=== PATIENT | female | born 1990 | race Asian ===

== ENCOUNTER 2020-09-30 10:08 | Outpatient (REF) | payer OTHER, SELFPAY ==
[2020-09-30 11:10] LABS: MANUAL DIFF FLAG NO
[2020-09-30 11:22] LABS: Basophils Percent Auto 0.5 % (0-2); Eosinophils Absolute Auto 0.1 X10*3/uL (0.0-0.4); Eosinophils Percent Auto 1.5 % (0-4); Hematocrit 38.8 % (37-47); Hemoglobin 12.3 g/dl (12.0-16.0); Imm Gran Abs Auto 0.01 X10*3/uL (0.00-0.03); Imm Gran Pct Auto 0.2 % (0.0-0.4); Lymphocytes Absolute Auto 2.4 X10*3/uL (1.2-4.9); Lymphocytes Percent Auto 36.7 % (20-40); Mean Corpuscular HGB Conc 31.7 g/dl (31.0-35.0); Mean Corpuscular Hemoglobin 28.5 pg (27.0-33.0); Mean Corpuscular Volume 89.8 fL (80-98); Mean Platelet Volume 10.6 fL (9.4-12.3); Monocytes Absolute Auto 0.5 X10*3/uL (0.1-1.2); Monocytes Percent Auto 7.1 % (2-11); Neutrophils Absolute Auto 3.5 X10*3/uL (2.0-8.3); Platelet Count 285 X10*3/uL (160-400); Red Blood Count 4.32 X10*6/uL (4.20-5.50); Red Cell Distribution Width 11.9 % (11.0-16.0); White Blood Count 6.5 X10*3/uL (4.8-10.8)
[2020-09-30 12:04] LABS: Vitamin D 25-OH Total 11.1 ng/mL (>30)
[2020-09-30 12:06] LABS: Folate 11.8 ng/mL (> or = 4.0); Vitamin B12 < 146 pg/mL (200-900)
[2020-09-30 12:07] LABS: Alanine Aminotransferase 18 U/L (0-31); Albumin Level 4.1 g/dL (3.5-5.0); Alkaline Phosphatase 62 U/L (39-117); Anion Gap 14 (12-20); Aspartate Amino Transferase 13 U/L (5-31); Bilirubin Total 0.5 mg/dL (0.0-1.0); Blood Urea Nitrogen 13 mg/dL (9-16); Calcium 8.6 mg/dL (8.4-10.2); Carbon Dioxide 18 mmol/L (22-29); Chloride 111 mmol/L (96-108); Estimated Glomerular Filt Rate > 60; Glucose Fasting 107 mg/dL (60-99); Potassium 4.2 mmol/L (3.3-5.1); Sodium 139 mmol/L (135-145); Total Protein 7.5 g/dL (6.5-8.0)
[2020-09-30 12:46] LABS: Erythrocyte Sedimentation Rate 20 MM/HR (0-20)
== END 2020-09-30 10:09 | disposition home or self-care (01) ==
LOC: HO.HMGCLDS 10:08
PROVIDERS: PCP Family Medicine; Visit Provider Family Medicine
DX: Z00.00 Encounter for general adult medical examination without abnormal findings (principal); R53.83 Other fatigue; E53.8 Deficiency of other specified B group vitamins; E55.9 Vitamin D deficiency, unspecified
CPT/HCPCS: 36415; 80053; 82306; 82607; 82746; 84443; 85025; 85652

== ENCOUNTER 2020-11-22 18:10 | Outpatient (REF) | payer OTHER, SELFPAY | END 2020-11-22 18:11 | disposition home or self-care (01) | LOC: HO.LNP 18:10 | PROVIDERS: Visit Provider Family Medicine | DX: Z20.822 Contact with and (suspected) exposure to COVID-19 (principal); B34.9 Viral infection, unspecified | CPT/HCPCS: U0003; U0005 ==

== ENCOUNTER 2020-12-22 11:20 | Outpatient (REF) | payer OTHER, SELFPAY ==
[2020-12-22 14:26] LABS: Monotest Negative (Negative)
== END 2020-12-22 11:21 | disposition home or self-care (01) ==
LOC: HO.HMGCLDS 11:20
PROVIDERS: PCP Family Medicine; Visit Provider Family Medicine
DX: G89.29 Other chronic pain (principal); R51.9 Headache, unspecified; R53.83 Other fatigue
CPT/HCPCS: 36415; 86308

== ENCOUNTER 2022-08-14 13:59 | Outpatient (REF) | payer OTHER, SELFPAY ==
[2022-08-14 16:37] LABS: Hematocrit 38.3 % (37.0-47.0); Hemoglobin 12.3 g/dl (12.0-16.0); Mean Corpuscular HGB Conc 32.1 g/dl (31.0-35.0); Mean Corpuscular Hemoglobin 28.3 pg (27.0-33.0); Mean Platelet Volume 10.8 fL (9.4-12.3); Platelet Count 292 X10*3/uL (160-400); Red Blood Count 4.35 X10*6/uL (4.20-5.50); Red Cell Distribution Width 12.6 % (11.0-16.0); White Blood Count 8.7 X10*3/uL (4.8-10.8)
[2022-08-14 17:07] LABS: Alanine Aminotransferase 39 U/L (0-31); Alkaline Phosphatase 74 U/L (39-117); Anion Gap 12 (12-20); Aspartate Amino Transferase 26 U/L (5-31); Bilirubin Direct < 0.2 mg/dL (0.0-0.5); Bilirubin Total 0.4 mg/dL (0.0-1.0); Blood Urea Nitrogen 9 mg/dL (9-16); C Reactive Protein 1.18 mg/dL (< or = 0.50); Calcium 9.3 mg/dL (8.4-10.2); Carbon Dioxide 25 mmol/L (22-29); Chloride 104 mmol/L (96-108); Cholesterol 193 mg/dL; Estimated Glomerular Filt Rate > 60; Glucose Random 118 mg/dL (60-115); HDL Cholesterol 51 mg/dL; LDL Cholesterol Calculated 102 mg/dl; Potassium 3.9 mmol/L (3.3-5.1); Sodium 137 mmol/L (135-145); Total Protein 7.5 g/dL (6.5-8.0); Triglycerides 201 mg/dL
[2022-08-14 17:24] LABS: Thyroid Stimulating Hormone 2.09 uIU/mL (0.32-4.0)
== END 2022-08-14 14:00 | disposition home or self-care (01) ==
LOC: HO.HMGCLDS 13:59
PROVIDERS: PCP Family Medicine; Visit Provider Internal Medicine
DX: R53.83 Other fatigue (principal)
CPT/HCPCS: 36415; 80048; 80061; 80076; 84443; 85027; 86140

== ENCOUNTER 2022-08-18 11:40 | Outpatient (REF) | payer OTHER, SELFPAY ==
[2022-08-18 14:37] LABS: Influenza A PCR NEGATIVE (Negative); Influenza B PCR NEGATIVE (Negative); Resp Syncy Virus RNA Qual PCR NEGATIVE (Negative); SARS COV2 PCR INHOUSE NEGATIVE (Negative)
[2022-08-18 15:05] LABS: Folate 17.3 ng/mL (> or = 4.0); Vitamin B12 476 pg/mL (200-900)
[2022-08-21 16:23] LABS: CRP High Sensitivity >10.0 mg/L
== END 2022-08-18 11:41 | disposition home or self-care (01) ==
LOC: HO.WFDLDS 11:40
PROVIDERS: Visit Provider Nurse Practitioner Family
DX: R52 Pain, unspecified (principal); R53.83 Other fatigue; Z20.822 Contact with and (suspected) exposure to COVID-19
CPT/HCPCS: 0241U; 36415; 82607; 82746; 86141

== ENCOUNTER 2022-08-18 11:48 | Outpatient (REF) | payer OTHER, SELFPAY | END 2022-08-18 11:49 | disposition home or self-care (01) | LOC: HO.LAB 11:48 | PROVIDERS: Visit Provider Nurse Practitioner Family | DX: Z13.89 Encounter for screening for other disorder (principal) ==

== ENCOUNTER 2022-09-22 13:46 | Outpatient (REF) | payer OTHER, SELFPAY ==
[2022-09-22 16:47] LABS: Basophils Percent Auto 0.4 % (0-2); Eosinophils Absolute Auto 0.1 X10*3/uL (0.0-0.4); Eosinophils Percent Auto 1.5 % (0-4); Imm Gran Abs Auto 0.03 X10*3/uL (0.00-0.03); Imm Gran Pct Auto 0.4 % (0.0-0.4); Lymphocytes Absolute Auto 2.7 X10*3/uL (1.2-4.9); Lymphocytes Percent Auto 36.7 % (20-40); MANUAL DIFF FLAG NO; Mean Corpuscular HGB Conc 32.4 g/dl (31.0-35.0); Mean Corpuscular Hemoglobin 28.6 pg (27.0-33.0); Mean Corpuscular Volume 88.1 fL (80.0-98.0); Mean Platelet Volume 10.9 fL (9.4-12.3); Monocytes Absolute Auto 0.5 X10*3/uL (0.1-1.2); Monocytes Percent Auto 6.6 % (2-11); Neutrophils Percent Auto 54.4 % (45-73); Platelet Count 266 X10*3/uL (160-400); Red Cell Distribution Width 12.2 % (11.0-16.0); White Blood Count 7.3 X10*3/uL (4.8-10.8)
[2022-09-22 17:11] LABS: Alanine Aminotransferase 34 U/L (0-31); Albumin Level 3.8 g/dL (3.5-5.0); Alkaline Phosphatase 66 U/L (39-117); Anion Gap 13 (12-20); Aspartate Amino Transferase 20 U/L (5-31); Bilirubin Total 0.4 mg/dL (0.0-1.0); Blood Urea Nitrogen 10 mg/dL (9-16); Calcium 9.1 mg/dL (8.4-10.2); Carbon Dioxide 24 mmol/L (22-29); Chloride 105 mmol/L (96-108); Estimated Glomerular Filt Rate > 60; Glucose Random 100 mg/dL (60-115); Potassium 3.9 mmol/L (3.3-5.1); Sodium 138 mmol/L (135-145); Total Protein 7.2 g/dL (6.5-8.0)
[2022-09-22 17:14] LABS: Monotest Negative (Negative)
[2022-09-22 17:26] LABS: Erythrocyte Sedimentation Rate 29 MM/HR (0-20)
[2022-09-22 17:29] LABS: Vitamin D 25-OH Total 19.7 ng/mL (>30)
[2022-09-25 12:02] LABS: HBS Num1 165.21 mIU/mL (0-7.99); HBc Num1 0.12 S/CO (0.00-0.79); HBsAGNum1 0.31 S/CO (0.00-0.99); HIV AB/AG Nonreactive (Nonreactive); HIV Num 1 0.08 S/CO (0.00-0.99); Hepatitis B Core Antibody Nonreactive (Nonreactive); Hepatitis B Surface Antigen Negative (Negative); ~HepC Num1 0.13 S/CO (0.00-0.79); ~Hepatitis B Surface Antibody REACTIVE (Nonreactive); ~Hepatitis C Antibody Nonreactive (Nonreactive)
[2022-09-25 17:18] LABS: CRP High Sensitivity 8.3 mg/L
[2022-09-26 06:14] LABS: Lyme Blot 1.05 index
[2022-09-26 17:28] LABS: EBV DNA PCR Not Detected (Not Detected); EBV Source Whole Blood
[2022-09-29 14:13] LABS: 18 KD (IgG) Band NON-REACTIVE; 23 KD (IgG) Band NON-REACTIVE; 23 KD (IgM) Band NON-REACTIVE; 28 KD (IgG) Band NON-REACTIVE; 30 KD (IgG) Band NON-REACTIVE; 39 KD (IgM) Band NON-REACTIVE; 39KD (IgG) Band NON-REACTIVE; 41 KD (IgM) Band NON-REACTIVE; 41KD (IgG) Band NON-REACTIVE; 45 KD (IgG) Band NON-REACTIVE; 58 KD (IgG) Band NON-REACTIVE; 66 KD (IgG) Band NON-REACTIVE; 93 KD (IgG) Band NON-REACTIVE; Lyme Abs Screen EQUIVOCAL; Lyme IgG Blot Interp NEGATIVE (NEGATIVE); Lyme IgM Blot Interp NEGATIVE (NEGATIVE)
== END 2022-09-22 13:47 | disposition home or self-care (01) ==
LOC: HO.HMGCLDS 13:46
PROVIDERS: Visit Provider Family Medicine
DX: Z00.00 Encounter for general adult medical examination without abnormal findings (principal); Z11.4 Encounter for screening for human immunodeficiency virus [HIV]; Z11.3 Encounter for screening for infections with a predominantly sexual mode of transmission; R53.83 Other fatigue; E55.9 Vitamin D deficiency, unspecified
CPT/HCPCS: 36415; 80053; 82306; 85025; 85652; 86141; 86308; 86617; 86618; 86704; 86706; 86803; 87340; 87389; 87798

== ENCOUNTER 2023-08-03 15:10 | Outpatient (AMB) | payer OTHER, SELFPAY ==
--- NOTE | 2023-08-03 15:27 | A.OFFVIS_ITS ---
Intake Vital Signs 08/03/23 15:32 Height 5 ft 2 in Weight 182 lb 6 oz BMI 33.4 BP 108/70 Blood Pressure Location Rt brachial Position Sitting Respiration 16 Pulse 80 Pulse Source Pulse Oximeter Pulse Oximetry (%) 97 Oxygen Delivery Method Room Air Intake Visit Reasons: NPV- Migraine with aura/HYPERSOMNIA Intake Note: Pt presents for new pt evaluation for Migraines. 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 Patient reports she started having headaches a few years ago however the increased approximately 1.5 years ago due to increased stress related to going through a divorce and becoming a single parent. Since they have decreased but does still have headaches. She also reports that she started having increased sleep difficulties around the same time,. Headache questionnaire: Previous work-up? States she had a normal brain MRI. Typical headache characteristics: Prodrome symptoms? None Aura? Denies Location, quality, characteristics? Stabbing pain in the back of the head becoming holocranial Pain intensity? Moderate to severe Associated symptoms? Photophobia, phonophobia, difficulty concentrating, dizziness, photophobia, nausea, ear pain, activity intolerance Focal weakness, Parethesias, Autonomic s/s? Denies Postdrome? Fatigue Triggers? Skipping meals, not sleeping well, stress Any positional, valsalva, exertional, sexual activity triggers? Denies Menstrual triggers? Yes can be worse. Has regular menses. Not on any control. Time of day? No specific time of day Duration? 1-2 days if untreated. Frequency? 1-2 times per month How does headache impact your life? Tries not to miss work. Currently working part-time as an construction accountant. Previous headache burden prevented her from working full-time. Current acute medication use/interventions: Naproxen 2 tabs, helps Previous acute medication use: None other Current preventative medication use: None Previous preventative medication use: Topiramate 25 mg per day, unsure if it was helpful. Non-pharmacological interventions: Rest Patient also endorses weight gain, blurry vision, depression and suicidal ideation without plan, states rarely but at times will think about the loss of her marriage and this can make her have suicidal ideation. She does not currently have a therapist. Note she is currently remarried. Patient describes her sleep difficulties as snoring, difficulty maintaining sleep, ruminating thoughts at night, excessive daytime sleepiness especially when she has not slept well. She has never had a sleep study. Patient denies history of concussion, back or neck issues, respiratory difficulties, cardiac disease, syncope, seizure, history of clotting disorders, endocrine disorders. Family history of migraine or other headache disorder? Her mother [facility] Family History Mother No problems noted. Father No problems noted. Social History Housing: Apartment Alcohol intake: never Patient Tobacco Use Status: Never used Tobacco e-Cigarette/Vaping Use: Never Used Current occupational status: employed Cognitive needs: No Hearing needs: No Vision needs: No Review of Systems Const Details: See scanned ROS form Physical Exam Vital Signs: Last Vital Signs Pulse 80 08/03/23 15:32 Resp 16 08/03/23 15:32 BP 108/70 08/03/23 15:32 Pulse Ox 97 08/03/23 15:32 Oxygen Delivery Method Room Air 08/03/23 15:32 BMI result Body Mass Index 33.4 Const Orientation/consciousness: patient oriented x3 HEENT Other: No palpable scalp tenderness. Head: Yes normocephalic Resp Effort & Inspection: normal respiratory effort and able to speak in complete sentences Neuro General: patient oriented x3 Cranial nerves: Yes CN's II-XII intact bilaterally Cognition (Neuro): normal cognition Gait exam (Neuro): Normal gait present Motor exam (neuro): 5/5 motor strength present throughout Deep tendon reflexes (DTR's): Right triceps reflex intensity grade: 2+, Left triceps reflex intensity grade: 2+, Rt Biceps (C5, C6): 2+, Left biceps reflex intensity grade: 2+, Right brachioradialis reflex intensity grade: 2+, Left brachioradialis reflex intensity grade: 2+, Right patellar reflex intensity grade: 2+ and Left patellar reflex intensity grade: 2+ Coordination: [id number] test normal, tandem gait normal and Romberg test negative Pupils: Normal pupillary reactivity/response: bilateral Psych Appearance: grossly normal Mental Status: mental status grossly normal Speech and movement: Normal speech and movement present Affect: normal affect Attitude: cooperative Thought process: Normal thought process present Assessment & Plan Assessment & Plan (1) Excessive daytime sleepiness: Code(s): G47.19 - Other hypersomnia (2) Snoring: Code(s): R06.83 - Snoring (3) Sleep difficulties: Code(s): G47.9 - Sleep disorder, unspecified (4) Depression: Code(s): F32.9 - Major depressive disorder, single episode, unspecified (5) Adjustment disorder: Code(s): F43.20 - Adjustment disorder, unspecified (6) Migraine without aura: Code(s): G43.009 - Migraine without aura, not intractable, without status migrainosus Plan Pt advised to undergo home sleep study to assess for sleep apnea. Patient advised to establish care with a therapist to help her adjust her sleep issues and adjustment issues stemming from her divorce. For overall headache management: Discussed importance of good self-care, including but not limited to maintaining a healthy diet, adequate fluid intake, adequate sleep, and engaging in regular physical activity. For headache triggers: Track headaches, especially after any treatment regimen changes. Migraine [employer]Its[employer] is one of many headache tracking apps. For acute headache treatment: Discussed importance of taking acute medications at the first sign of headache, however stressed importance of avoiding acute medication overuse. May use naproxen 2 tabs as needed. Previous acute migraine medication trials: None Acute migraine medication contraindications: None Future considerations: Sumatriptan p.r.n. For headache prevention medication: Discussed that preventative medications should be taken routinely as prescribed for best effect, it may take several weeks for full effect to take effect. Start Riboflavin 400mg qam Start Magnesium 400mg qhs Previous migraine prevention medication trials: Topiramate- 25 mg q.h.s.- ineffective Migraine prevention medication contraindications: None at this time Pt to follow-up in 2 months or sooner prn. This note is constructed using voice recognition software. While every effort has been made to ensure accuracy, inter fold roll cutter errors may have been included. Orders: Orders RT home sleep study 08/03/23 G47.19 - Other hypersomnia, G47.9 - Sleep disorder, unspecified, R06.83 - Snoring Referrals Psychology Referral F32.9 - Major depressive disorder, single episode, unspecified, F43.20 - Adjustment disorder, unspecified, G47.9 - Sleep disorder, unspecified Medications: New riboflavin (vitamin B2) 400 mg PO DAILY 30 days 30 tabs 6RF magnesium oxide may hold for loose stools 400 mg PO BEDTIME 30 days 30 tabs 6RF magnesium oxide may hold for loose stools 400 mg PO BEDTIME 30 days 30 tabs 6RF riboflavin (vitamin B2) 400 mg PO DAILY 30 days 30 tabs 6RF Coding Level of Care Code New Pt Level 4 (06563) Diagnoses Excessive daytime sleepiness G47.19 Snoring R06.83 Sleep difficulties G47.9 Depression F32.9 Adjustment disorder F43.20 Migraine without aura G43.009
[2023-08-03 15:32] VITALS: BP 108/70; PULSE 80; RESP 16; O2SAT 97; BMI 33.4
== END 2023-08-03 16:17 | disposition home or self-care (01) ==
PROVIDERS: PCP Family Medicine; Visit Provider Nurse Practitioner Family
DX: G47.19 Other hypersomnia (principal); R06.83 Snoring; G47.9 Sleep disorder, unspecified; F32.9 Major depressive disorder, single episode, unspecified; F43.20 Adjustment disorder, unspecified; G43.009 Migraine without aura, not intractable, without status migrainosus
CPT/HCPCS: 99204

== ENCOUNTER → 2023-08-03 15:10 | Outpatient (BNVA) | payer OTHER, SELFPAY | PROVIDERS: PCP Family Medicine; Visit Provider Nurse Practitioner Family | DX: G47.19 Other hypersomnia (principal); R06.83 Snoring; F32.9 Major depressive disorder, single episode, unspecified; F43.20 Adjustment disorder, unspecified; G43.009 Migraine without aura, not intractable, without status migrainosus | CPT/HCPCS: 99202 ==

== ENCOUNTER → 2023-09-20 14:05 | Outpatient (REF) | payer OTHER, SELFPAY | LOC: HO.SL 14:05 | PROVIDERS: PCP Family Medicine; Visit Provider Nurse Practitioner Family | DX: G47.19 Other hypersomnia (principal); R06.83 Snoring; G47.9 Sleep disorder, unspecified | CPT/HCPCS: 95806 ==

== ENCOUNTER → 2023-09-20 14:20 | Outpatient (BNV) | payer OTHER, SELFPAY | PROVIDERS: PCP Family Medicine; Visit Provider Psychiatry & Neurology Neurology | DX: R06.83 Snoring (principal) | CPT/HCPCS: 95806 ==

== ENCOUNTER 2023-11-05 15:10 | Outpatient (AMB) | payer OTHER, SELFPAY ==
--- NOTE | 2023-11-05 15:21 | A.OFFVIS_ITS ---
Vital Signs 11/05/23 15:22 Height 5 ft 2 in Weight 184 lb BMI 33.7 BP 98/74 Blood Pressure Location Rt brachial Position Sitting Intake Visit Reasons: 3 mon follow up/ Confirmed w/address Intake Note: Patient presents for 3 month follow up . Allergies No Known Allergies Allergy (Verified 11/05/23 15:23) Medication List - Last Reconciled 11/05/23 by DEVYN Wisdom magnesium oxide 400 mg PO BEDTIME 30 days mecobalamin (vitamin B12) 1,000 mcg PO DAILY 30 days riboflavin (vitamin B2) 400 mg PO DAILY 30 days HPI Comments Details: 33-yr-old female presents for f/u visit. Pt denies any significant interval medical changes. Pt notes that her upper arms have been achy. She thinks this is d/t her not sleeping well as her dtr has been sick, also her mom has recently come to stay with her. She may be moving later this summer to [place]. During this time, she did have some breakthrough headache. In October, she had 10 headache days. In September, 5 milder headaches. Tolerating B2 and Mag well. Using tylenol for milder headache, and Naproxen for moderate headache. Her mood is better. She is still fatigued and has BUE achy arms especially after being more active. States this has been happening for since at least last yr. Her HST showed AHI 2/hr, O2 cara 88% w/ SpO2 < 90% x's 35.5 min (7.7% of study time). Denies h/o resp d/o, asthma. [facility] Family History Mother No problems noted. Father No problems noted. Social History Housing: Apartment Alcohol intake: never Patient Tobacco Use Status: Never used Tobacco e-Cigarette/Vaping Use: Never Used Current occupational status: employed Cognitive needs: No Hearing needs: No Vision needs: No Physical Exam Vital Signs: Last Vital Signs BP 98/74 11/05/23 15:22 BMI result Body Mass Index 33.7 Const General: cooperative and no acute distress Orientation/consciousness: patient oriented x3 Resp Effort & Inspection: normal respiratory effort and able to speak in complete sentences Neuro General: patient oriented x3 Cranial nerves: Yes CN's II-XII intact bilaterally Cognition (Neuro): normal cognition Psych Appearance: grossly normal Mental Status: mental status grossly normal Speech and movement: Normal speech and movement present Affect: normal affect Attitude: cooperative Assessment & Plan Assessment & Plan (1) Fatigue: Code(s): R53.83 - Other fatigue Category: Medical (2) Myalgia: Code(s): M79.10 - Myalgia, unspecified site Category: Medical (3) Migraine without aura: Code(s): G43.009 - Migraine without aura, not intractable, without status migrainosus Category: Medical (4) Sleep difficulties: Code(s): G47.9 - Sleep disorder, unspecified Category: Medical (5) Snoring: Code(s): R06.83 - Snoring Category: Medical (6) Excessive daytime sleepiness: Code(s): G47.19 - Other hypersomnia Category: Medical Plan Reviewed home sleep study- AHI 2/hr, however SpO2 < 90% x's 35 min. Pt advised to undergo in-lab PSG to further assess. Check labs for common etiologies of fatigue, myalgias in setting of h/o anemia, elevated CRP, vit def. ? For overall headache management: Continue to optimize good self-care, including but not limited to maintaining a healthy diet, adequate fluid intake, adequate sleep, and engaging in regular physical activity. Track headaches. ? For acute headache treatment: Discussed importance of taking acute medications at the first sign of headache, however stressed importance of avoiding acute medication overuse. May use Tylenol 650-1000mg or Naproxen 440mg 2 tabs as needed. Previous acute migraine medicaton trials: None Acute migraine medication contraindications: None Future considerations: Sumatriptan p.r.n. ? For headache prevention medication: Riboflavin 400mg qam Magnesium 400mg qhs Previous migraine prevention medication trials: Topiramate- 25 mg q.h.s.- ineffective Migraine prevention medication contraindications: None at this time Future considerations- retrying Topiramate- as pt is also interested in wt loss program. ? Pt to follow-up in 6 months or sooner prn. Orders: Orders 2 CRP High Sensitivity Today D64.9 - Anemia, unspecified, E53.8 - Deficiency of other specified B group vitamins, E55.9 - Vitamin D deficiency, unspecified, F32.9 - Major depressive disorder, single episode, unspecified, M79.10 - Myalgia, unspecified site, R53.83 - Other fatigue, R79.82 - Elevated C-reactive protein (CRP) FREDA Reflex Titer and Pattern Today D64.9 - Anemia, unspecified, E53.8 - Deficiency of other specified B group vitamins, E55.9 - Vitamin D deficiency, unspecified, F32.9 - Major depressive disorder, single episode, unspecified, M79.10 - Myalgia, unspecified site, R53.83 - Other fatigue, R79.82 - Elevated C- reactive protein (CRP) Erythrocyte Sedimentation Rate Today D64.9 - Anemia, unspecified, E53.8 - Deficiency of other specified B group vitamins, E55.9 - Vitamin D deficiency, unspecified, F32.9 - Major depressive disorder, single episode, unspecified, M79.10 - Myalgia, unspecified site, R53.83 - Other fatigue, R79.82 - Elevated C- reactive protein (CRP) Rheumatoid Factor Today D64.9 - Anemia, unspecified, E53.8 - Deficiency of other specified B group vitamins, E55.9 - Vitamin D deficiency, unspecified, F32.9 - Major depressive disorder, single episode, unspecified, M79.10 - Myalgia, unspecified site, R53.83 - Other fatigue, R79.82 - Elevated C-reactive protein (CRP) Lyme IgG/IgM w/reflex to WB Today D64.9 - Anemia, unspecified, E53.8 - Deficiency of other specified B group vitamins, E55.9 - Vitamin D deficiency, unspecified, F32.9 - Major depressive disorder, single episode, unspecified, M79.10 - Myalgia, unspecified site, R53.83 - Other fatigue, R79.82 - Elevated C- reactive protein (CRP) Vitamin D 25-OH (D2 and D3) Today D64.9 - Anemia, unspecified, E53.8 - Deficiency of other specified B group vitamins, E55.9 - Vitamin D deficiency, unspecified, F32.9 - Major depressive disorder, single episode, unspecified, M79.10 - Myalgia, unspecified site, R53.83 - Other fatigue, R79.82 - Elevated C- reactive protein (CRP) Lipid Panel with Reflex Today D64.9 - Anemia, unspecified, E53.8 - Deficiency of other specified B group vitamins, E55.9 - Vitamin D deficiency, unspecified, F32.9 - Major depressive disorder, single episode, unspecified, M79.10 - Myalgia, unspecified site, R53.83 - Other fatigue, R79.82 - Elevated C-reactive protein (CRP) Complete Blood Count Auto Diff Today D64.9 - Anemia, unspecified, E53.8 - Deficiency of other specified B group vitamins, E55.9 - Vitamin D deficiency, unspecified, F32.9 - Major depressive disorder, single episode, unspecified, M79.10 - Myalgia, unspecified site, R53.83 - Other fatigue, R79.82 - Elevated C- reactive protein (CRP) Comprehensive Met. Panel Today D64.9 - Anemia, unspecified, E53.8 - Deficiency of other specified B group vitamins, E55.9 - Vitamin D deficiency, unspecified, F32.9 - Major depressive disorder, single episode, unspecified, M79.10 - Myalgia, unspecified site, R53.83 - Other fatigue, R79.82 - Elevated C-reactive protein (CRP) Creatine Kinase Total Today D64.9 - Anemia, unspecified, E53.8 - Deficiency of other specified B group vitamins, E55.9 - Vitamin D deficiency, unspecified, F32.9 - Major depressive disorder, single episode, unspecified, M79.10 - Myalgia, unspecified site, R53.83 - Other fatigue, R79.82 - Elevated C-reactive protein (CRP) TSH reflex Free T4 Today D64.9 - Anemia, unspecified, E53.8 - Deficiency of other specified B group vitamins, E55.9 - Vitamin D deficiency, unspecified, F32.9 - Major depressive disorder, single episode, unspecified, M79.10 - Myalgia, unspecified site, R53.83 - Other fatigue, R79.82 - Elevated C-reactive protein (CRP) Vitamin B12 and Folate Today D64.9 - Anemia, unspecified, E53.8 - Deficiency of other specified B group vitamins, E55.9 - Vitamin D deficiency, unspecified, F32.9 - Major depressive disorder, single episode, unspecified, M79.10 - Myalgia, unspecified site, R53.83 - Other fatigue, R79.82 - Elevated C-reactive protein (CRP) Hemoglobin A1c Today D64.9 - Anemia, unspecified, E53.8 - Deficiency of other specified B group vitamins, E55.9 - Vitamin D deficiency, unspecified, F32.9 - Major depressive disorder, single episode, unspecified, M79.10 - Myalgia, unspecified site, R53.83 - Other fatigue, R79.82 - Elevated C-reactive protein (CRP) Homocysteine Today D64.9 - Anemia, unspecified, E53.8 - Deficiency of other specified B group vitamins, E55.9 - Vitamin D deficiency, unspecified, F32.9 - Major depressive disorder, single episode, unspecified, M79.10 - Myalgia, unspecified site, R53.83 - Other fatigue, R79.82 - Elevated C-reactive protein (CRP) Methylmalonic Acid Today D64.9 - Anemia, unspecified, E53.8 - Deficiency of other specified B group vitamins, E55.9 - Vitamin D deficiency, unspecified, F32.9 - Major depressive disorder, single episode, unspecified, M79.10 - Myalgia, unspecified site, R53.83 - Other fatigue, R79.82 - Elevated C-reactive protein (CRP) RT PSG in-lab sleep study Today G47.19 - Other hypersomnia, G47.9 - Sleep disorder, unspecified, R06.83 - Snoring, R53.83 - Other fatigue Coding Level of Care Code Est Pt Level 4 (63181) Diagnoses Fatigue R53.83 Myalgia M79.10 Migraine without aura G43.009 Sleep difficulties G47.9 Snoring R06.83 Excessive daytime sleepiness G47.19
[2023-11-05 15:22] VITALS: BP 98/74; BMI 33.7
== END 2023-11-05 16:14 | disposition home or self-care (01) ==
PROVIDERS: PCP Family Medicine; Visit Provider Nurse Practitioner Family
DX: R53.83 Other fatigue (principal); M79.10 Myalgia, unspecified site; G43.009 Migraine without aura, not intractable, without status migrainosus; G47.9 Sleep disorder, unspecified; R06.83 Snoring; G47.19 Other hypersomnia
CPT/HCPCS: 99214

== ENCOUNTER → 2023-11-05 15:10 | Outpatient (BNVA) | payer OTHER, SELFPAY | PROVIDERS: PCP Family Medicine; Visit Provider Nurse Practitioner Family | DX: R53.83 Other fatigue (principal); M79.10 Myalgia, unspecified site; G43.009 Migraine without aura, not intractable, without status migrainosus; G47.9 Sleep disorder, unspecified; R06.83 Snoring; G47.19 Other hypersomnia | CPT/HCPCS: 99212 ==

== ENCOUNTER 2023-11-12 06:38 | Outpatient (REF) | payer OTHER, SELFPAY ==
[2023-11-12 10:32] LABS: MANUAL DIFF FLAG NO
[2023-11-12 10:48] LABS: Basophils Percent Auto 0.5 % (0-2); Eosinophils Absolute Auto 0.1 X10*3/uL (0.0-0.4); Eosinophils Percent Auto 1.8 % (0-4); Hematocrit 39.3 % (37.0-47.0); Hemoglobin 12.6 g/dl (12.0-16.0); Imm Gran Abs Auto 0.01 X10*3/uL (0.00-0.03); Imm Gran Pct Auto 0.2 % (0.0-0.4); Lymphocytes Absolute Auto 2.4 X10*3/uL (1.2-4.9); Lymphocytes Percent Auto 39.4 % (20-40); Mean Corpuscular HGB Conc 32.1 g/dl (31.0-35.0); Mean Corpuscular Hemoglobin 28.3 pg (27.0-33.0); Mean Corpuscular Volume 88.3 fL (80.0-98.0); Mean Platelet Volume 10.8 fL (9.4-12.3); Monocytes Absolute Auto 0.4 X10*3/uL (0.1-1.2); Monocytes Percent Auto 6.6 % (2-11); Neutrophils Absolute Auto 3.2 x10*3/uL (2.0-8.3); Neutrophils Percent Auto 51.5 % (45-73); Platelet Count 288 X10*3/uL (160-400); Red Blood Count 4.45 X10*6/uL (4.20-5.50); Red Cell Distribution Width 12.5 % (11.0-16.0); White Blood Count 6.2 X10*3/uL (4.8-10.8)
[2023-11-12 10:49] LABS: Estimated Average Glucose 131 mg/dL; Hemoglobin A1c % 6.2 % (<6.0)
[2023-11-12 11:07] LABS: Rheumatoid Factor < 13.0 IU/mL (<15.0)
[2023-11-12 11:11] LABS: Alanine Aminotransferase 27 U/L (0-31); Albumin Level 3.9 g/dL (3.5-5.0); Alkaline Phosphatase 69 U/L (39-117); Anion Gap 14 (12-20); Aspartate Amino Transferase 18 U/L (5-31); Bilirubin Total 0.4 mg/dL (0.0-1.0); Blood Urea Nitrogen 9 mg/dL (9-16); Calcium 9.7 mg/dL (8.4-10.2); Carbon Dioxide 23 mmol/L (22-29); Chloride 106 mmol/L (96-108); Cholesterol 156 mg/dL (<200); Estimated Glomerular Filt Rate > 60; Glucose Random 135 mg/dL (60-115); HDL Cholesterol 47 mg/dL (>40); LDL Cholesterol Calculated 89 mg/dL (<100); Potassium 4.2 mmol/L (3.3-5.1); Sodium 139 mmol/L (135-145); Total Protein 8.2 g/dL (6.5-8.0); Triglycerides 103 mg/dL (<150)
[2023-11-12 11:16] LABS: TSH reflex Free T4 2.18 uIU/mL (0.32-4.0)
[2023-11-12 11:26] LABS: Folate 4.5 ng/mL (> or = 4.0); Vitamin B12 444 pg/mL (200-900)
[2023-11-12 11:43] LABS: Erythrocyte Sedimentation Rate 34 MM/HR (0-20)
[2023-11-12 12:10] LABS: Reflex LDLD? No
[2023-11-13 14:13] LABS: Lyme Blot 1.01 index
[2023-11-15 11:47] LABS: Methylmalonic Acid 80 nmol/L (87-318)
[2023-11-15 12:32] LABS: 18 KD (IgG) Band NON-REACTIVE; 23 KD (IgG) Band NON-REACTIVE; 23 KD (IgM) Band NON-REACTIVE; 28 KD (IgG) Band NON-REACTIVE; 30 KD (IgG) Band NON-REACTIVE; 39 KD (IgM) Band NON-REACTIVE; 39KD (IgG) Band NON-REACTIVE; 41 KD (IgM) Band NON-REACTIVE; 41KD (IgG) Band NON-REACTIVE; 45 KD (IgG) Band NON-REACTIVE; 58 KD (IgG) Band REACTIVE; 66 KD (IgG) Band NON-REACTIVE; 93 KD (IgG) Band NON-REACTIVE; Lyme Abs Screen EQUIVOCAL; Lyme IgG Blot Interp NEGATIVE (NEGATIVE); Lyme IgM Blot Interp NEGATIVE (NEGATIVE)
[2023-11-16 12:59] LABS: Anti Nuclear Antibody Screen NEGATIVE (NEGATIVE)
[2023-11-16 14:44] LABS: CRP High Sensitivity 8.4 mg/L
[2023-11-16 15:43] LABS: Vitamin D 25-OH, D2 <4 ng/mL; Vitamin D 25-OH, D3 15 ng/mL; Vitamin D 25-OH, Total 15 ng/mL (30-100)
== END 2023-11-12 06:39 | disposition home or self-care (01) ==
LOC: HO.HMGCLDS 06:38
PROVIDERS: Visit Provider Nurse Practitioner Family
DX: D64.9 Anemia, unspecified (principal); M79.10 Myalgia, unspecified site; R53.83 Other fatigue; E53.8 Deficiency of other specified B group vitamins; E55.9 Vitamin D deficiency, unspecified; F32.9 Major depressive disorder, single episode, unspecified; R79.82 Elevated C-reactive protein (CRP)
CPT/HCPCS: 36415; 80053; 80061; 82306; 82550; 82607; 82746; 83036; 83921; 84443; 85025; 85652; 86038; 86141; 86431; 86617; 86618

== ENCOUNTER 2023-11-24 10:33 | Outpatient (REF) | payer OTHER, SELFPAY ==
[2023-11-26 21:09] LABS: Homocysteine 8.4 umol/L (<10.4)
== END 2023-11-24 10:34 | disposition home or self-care (01) ==
LOC: HO.LAB 10:33
PROVIDERS: PCP Nurse Practitioner Family; Visit Provider Nurse Practitioner Family
DX: D64.9 Anemia, unspecified (principal); M79.10 Myalgia, unspecified site; R53.83 Other fatigue; E53.8 Deficiency of other specified B group vitamins; E55.9 Vitamin D deficiency, unspecified; F32.9 Major depressive disorder, single episode, unspecified; R79.82 Elevated C-reactive protein (CRP)
CPT/HCPCS: 36415; 83090

== ENCOUNTER → 2024-05-16 13:43 | Outpatient (BNVA) | payer OTHER, SELFPAY | PROVIDERS: PCP Nurse Practitioner Family; Visit Provider Nurse Practitioner Family ==